=== PATIENT | male | born 1990 | race Caucasian/White ===

== ENCOUNTER 2017-03-01 19:35 | Emergency (ER) | payer BC ==
[~2017-03-01] VITALS: Ht 162.6 cm; Wt 81.6 kg
== END 2017-03-01 20:41 | disposition home or self-care (01) ==
LOC: SED 19:35
DX: L03.012 Cellulitis of left finger (principal); F17.210 Nicotine dependence, cigarettes, uncomplicated
CPT/HCPCS: 99283